=== PATIENT | female | born 1945 | race Caucasian/White ===

== ENCOUNTER → 2016-10-19 | Day surgery (SDC) | payer OTHER ==
[~2016-10-19] VITALS: Ht 160 cm; Wt 63.0 kg
[~2016-10-19] MED LIST: BISOPROLOL FUM2.5 MG PO; CALCIUM 600 +1 EAC1 PO; CELEXA 20 MG TA20 M1 PO; CITALOPRAM PO; IBUPROFEN 600600 M1; IRON325 PO; SIMETHICON CHEW80 M1; THERA-M CAPLET1 EACH PO
--- NOTE | ~2016-10-19 | S ---
[facility] [address] [place] [address] SURGICAL PATH RPT PROCEDURE Name: KIMBERLI DAVEY Room #: 407-P [facility] M.R.#: [id number] Admission: 10/19/16 Date of : 47 Discharge: Report #: [id number] Path Case #: [id number] PATHOLOGY REPORT DRAFT COLLECTION DATE: 10/19/2016 RECEIVED DATE: 10/19/2016 SPECIMEN(S) RECEIVED: A.Incarcerated hernia contents
--- NOTE | ~2016-10-19 | O ---
[facility] [place] [address] OPERATIVE REPORT Name: KIMBERLI DAVEY Room #: 407-P [facility]#: [id number] Admission: 10/19/16 Attend Phys: Sam Duque MD, F Discharge: Date of : 47 Report #: [id number] THIS REPORT FOR: //name// CC: Jairo Duque DATE OF SERVICE: 10/19/2016 SURGEON: Sam Duque MD. AUTOMATIC BEADING LATHE OPERATOR: Raymond Miranda MD. SECOND FIELD SERVICE POULTRY TECHNICIAN: MYNOR King. PREOPERATIVE DIAGNOSIS: Incisional ventral hernia. POSTOPERATIVE DIAGNOSIS: Incarcerated incisional ventral hernia. PROCEDURE: Laparoscopic repair of incarcerated incisional ventral hernia with mobilization of the urinary bladder. ANESTHESIA: General endotracheal anesthesia and local anesthetic. ESTIMATED BLOOD LOSS: 5 mL. SPECIMEN: Incarcerated hernia content. COMPLICATIONS: None appreciated. INDICATIONS FOR PROCEDURE: This is a 70-year-old female patient, who has a history of hysterectomy in 2013 for uterine cancer through a lower midline incision. She has had bulging and discomfort with abdominal straining since then. She notes increased frequency of her bowel movements, but denies a change in the consistency of her bowel movements (irregular). On exam, she was found to have a lower midline incisional ventral hernia with a bulge and palpable defect. She presents now for laparoscopic repair of her incisional ventral hernia. OPERATIVE FINDINGS: Upon entrance into the abdominal cavity, a large incisional ventral hernia was seen in the lower midline. After skeletonizing the defect, the defect itself was 8 cm long x 5 cm wide. In addition to this, the patient had a significant diastasis recti. The hernia extended inferiorly such that mobilization of the urinary bladder was necessary. A peritoneal flap and bladder flap was created in order to place the mesh against the fascia. There was good overlap as 23 x [address] mesh patch with the ECHO positioning system was used for the repair. After placement of the mesh, which [address] [address] OPERATIVE REPORT Name: KIMBERLI DAVEY Room #: 407-P [facility]#: [id number] Admission: 10/19/16 Attend Phys: Sam Duuqe MD, F Discharge: Date of : 47 Report #: [id number] required two additional 5 mm ports on the patient's right side due to the large size of the mesh, there was minimal rippling of the mesh. No other significant intraabdominal pathology was identified. At the conclusion of the operation, the sponge, needle, and instrument counts were correct. DESCRIPTION OF PROCEDURE IN DETAIL: After the benefits and risks of the procedure were explained to the patient, which included but are not limited to risks of bleeding, infection, postoperative pain, and postoperative expectations, an informed consent was obtained. The patient was identified in the preoperative holding area. She was given IV antibiotics as documented in the chart, in line with the SCIP protocol. The patient was then taken to the operating room, and she was placed in the supine position. SCDs were placed on the patient's bilateral lower extremities, and pneumatic compression was initiated. The patient was then given IV sedation. She was intubated without incident. Her abdomen was prepped and draped in the standard sterile fashion. A time-out was then performed to identify the correct patient and procedure. Local anesthetic was infiltrated into the skin and subcutaneous tissue in the left subcostal area, where a small transverse incision was made. A 5 mm Visiport was placed intraperitoneally with a 0-degree angled laparoscope. Pneumoperitoneum was then achieved with insufflation of carbon dioxide to 15 mmHg. A 30-degree angled laparoscope was then inserted. A left lateral 12 mm and left lower quadrant 5 mm port were each placed under direct visualization, after local anesthetic was infiltrated into the skin and subcutaneous tissue and appropriately sized incisions were made. Operative findings are as noted above. The incarcerated preperitoneal fat and abdominal wall fat was dissected free from the hernia defect. I started dividing the peritoneum in the cephalad area and skeletonizing the hernia defect using the ultrasonic dissector. The incarcerated tissue was viable. The tissue that was removed included hernia sac/peritoneum, abdominal wall fat, and preperitoneal fat with no evidence for bowel involvement. The tissue was transected and placed in the right upper quadrant of the abdomen for later retrieval. The hernia defect was measured. The appropriate sized mesh patch was chosen for the repair. The falciform ligament required division in order to allow for the mesh. In addition, peritoneum/bladder flap was dissected free. In order to mobilize the bladder, I applied appropriate traction on the peritoneum and bladder, and I freed the tissue from the abdominal wall. The mesh patch was then prepared on the backtable. It was rolled and placed within the abdominal cavity. The eyelet of the mesh was grasped with a needle tipped grasper through the abdominal wall and defect. The mesh was advanced anteriorly, and the balloon was inflated with the inflation apparatus. The catheter was then clamped at the skin level with a hemostat. The mesh was positioned intraabdominally. The SecureStrap tacking device was then used to tack the periphery of the mesh at the 12, 3 and 6 o'clock positions. The intra-abdominal pressure had been dropped to 8 mmHg. The periphery of the right side of the mesh was tacked with less than [address] [facility] [address] [place] [address] OPERATIVE REPORT Name: KIMBERLI DAVEY Room #: 407-P [facility]#: [id number] Admission: 10/19/16 Attend Phys: Sam Duque MD, F Discharge: Date of : 47 Report #: [id number] intervals. A decision was made to place a 5 mm ports times 2 in the left abdomen. This was done so under direct visualization with local anesthetic and appropriately sized incisions. The left side of the mesh was tacked in a similar fashion. The internal portion of the mesh was then tacked to the anterior abdominal wall as well. There was a small amount of bleeding that required a transfascial suture for hemostasis (0 PDS) at the right midportion of the mesh, near the edge of the hernia defect. The catheter was then divided at the skin level and the balloon was removed through the 12 mm port. The abdominal cavity was reentered. Additional tacks were placed to hold the mesh in place with good spacing. There was good fascial overlap and good coverage of the defect. The incarcerated tissue, that was placed in the right upper quadrant of the abdomen was removed through the 12 mm port using a Pean clamp. The 12 mm fascial opening was then closed with an 0 PDS suture using the Leo-Demetrio laparoscopic fascial closure device. The suture was tied under direct visualization to ensure no incorporation of intraabdominal content. The abdominal cavity was then desufflated, and the ports were removed. Interrupted subcuticular 4-0 Monocryl sutures and Dermabond were used to close all skin incisions. Dermabond was also applied to the puncture site in the midline of the abdomen (the site used to advance the mesh to the anterior abdominal wall). The patient tolerated the procedure well. She was awakened, extubated, and taken to the recovery room in stable condition with no apparent intraoperative complications. <ELECTRONICALLY SIGNED> By: Sam Duque MD, FACS 10/19/16 [id number] Sam Duque MD, FACS /nt
[2016-10-19 06:59] LABS: CALCIUM 8.5 mg/dL (8.5-10.1); CREATININE 0.6 mg/dL (0.6-1.0); POTASSIUM 3.5 mmol/L (3.5-5.1)
[2016-10-19 11:30] VITALS: BP 130/60
[2016-10-19 12:00] VITALS: BP 123/64
[2016-10-19 12:30] VITALS: BP 118/63
[2016-10-19 13:00] VITALS: BP 115/60
[2016-10-19 14:00] VITALS: BP 104/65
[2016-10-19 20:00] VITALS: BP 106/52
[2016-10-20 04:00] VITALS: BP 105/59
[2016-10-20 04:32] LABS: HEMATOCRIT 34.5 % (37.0-47.0); HEMOGLOBIN 11.8 gm/dL (12.0-15.0); MCH 29.6 pg (26.0-34.0); MCHC 34.2 g/dL (28.0-37.0); MCV 86.6 fL (80.0-100.0); PLATELET COUNT 259 thou/uL (150-400); RBC 3.99 mil/uL (4.20-5.00); RDW 13.1 % (10.5-14.5)
[2016-10-20 04:40] LABS: MANUAL DIFF YES
[2016-10-20 04:43] LABS: CREATININE 0.7 mg/dL (0.6-1.0)
[2016-10-20 08:43] LABS: ABSOLUTE NEUTROPHILS 7.2 thou/uL (1.4-8.2); TOTAL CELL COUNT 100
[2016-10-20 08:44] LABS: ANISOCYTOSIS SLIGHT
[2016-10-20 09:23] VITALS: BP 114/44
[2016-10-20 17:20] VITALS: BP 115/58
[2016-10-20 19:36] VITALS: BP 119/54
== END | disposition home or self-care (01) ==
LOC: 4N 05:19 → OR 05:19 → TBA 05:19 → 4N 11:23 → OR 13:54
PROVIDERS: Surgery
DX: K43.0 Incisional hernia with obstruction, without gangrene (principal); I10 Essential (primary) hypertension; F32.9 Major depressive disorder, single episode, unspecified; F41.9 Anxiety disorder, unspecified; Z87.891 Personal history of nicotine dependence; Z90.710 Acquired absence of both cervix and uterus; Z98.890 Other specified postprocedural states; Z98.49 Cataract extraction status, unspecified eye; Z85.43 Personal history of malignant neoplasm of ovary
CPT/HCPCS: 50010; 50101; 62110; 62900; 64031; 70005

== ENCOUNTER → 2016-11-07 | Outpatient (CLI) | payer OTHER | LOC: RAD 11:45 | DX: K43.2 Incisional hernia without obstruction or gangrene (principal) ==